=== PATIENT | male | born 1995 | race Caucasian/White ===

== ENCOUNTER → 2017-07-01 | Outpatient (CLI) | payer BC ==
[~2017-07-01] MED LIST: OPTIRAY 320 IV PRN
--- NOTE | 2017-07-01 12:43 | DIAGNOSTIC IMAGING REPORT ---
ABD/PELVIS IV AND ORAL CONT CLINICAL HISTORY: 22 years-old Male presenting with RLQ PAIN,PALPABLE MASS, PREVIOUS CT SHOW PHLEGMON. TECHNIQUE: Multidetector CT of the abdomen and pelvis was performed after the administration of oral and intravenous contrast. IV contrast: 93 mL of Optiray 320. A dose lowering technique was used consistent with the principles of ALARA (as low as reasonably achievable). COMPARISON: CT of the pelvis from 06/12/2017. CT DOSE (mGy.cm): The estimated cumulative dose is 277.03 mGycm. FINDINGS: Machine Stuffer Automatic topogram: Unremarkable. Lung bases: Lung bases clear. Normal heart size. No pericardial or pleural effusion. Liver: Normal morphology. No liver lesion. Patent hepatic vasculature. Biliary: No intrahepatic or extrahepatic biliary ductal dilatation. Normal gallbladder. Pancreas: Normal. Spleen: Normal. Adrenal glands: Normal. Kidneys and ureters: Normal. No hydronephrosis. Bladder: Normal. Pelvic organs: Prostate appears hyperemic. Seminal vesicles normal. Bowel: The appendix is opacified with contrast and is normal appearing. However, there is a rim-enhancing ovoid fluid collection along the anterior aspect of the cecum measuring 2.4 x 0.9 cm. This extends towards the inguinal canal. No bowel obstruction. No gross abnormality of the adjacent cecum. Peritoneal cavity: Trace free fluid in the pelvis, which is unexpected in a male. Lymph nodes: No enlarged lymph nodes in the abdomen or pelvis. Vasculature: Aorta and IVC patent and normal in caliber. Abdominal wall: Normal. Musculoskeletal: Normal. IMPRESSION: 1. Rim-enhancing fluid collection anterior to the cecum concerning for abscess. This appears distinctly separate from the normal-appearing appendix. Differential considerations include an encysted hydrocele or thrombosed vein. Given the superficial location, this be amenable to ultrasound if imaging follow-up is desired. The report will be called/faxed according to standard departmental protocol. Electronically signed by: Suhas Deluca M.D. 07/01/2017 12:42 PM Dictated Date/Time: 07/01/2017 12:33 PM
== END | disposition home or self-care (01) ==
LOC: C.CTS 09:58
PROVIDERS: ATTEND Family Medicine
DX: R10.31 Right lower quadrant pain (principal)